=== PATIENT | male | born 1950 | race African-American/Black ===

== ENCOUNTER 2024-03-22 18:24 | Inpatient (IN) | payer OTHER ==
[~2024-03-22] VITALS: Ht 172.7 cm; Wt 84.9 kg
[2024-03-22 19:14] LABS: Basophils # (auto) 0.1 10 ^3/uL (0-0.2); Eosinophils % (auto) 1.1 % (0.0-7.0); Hemoglobin 11.9 g/dL (13.5-17.5); Monocytes # (auto) 1.1 10 ^3/uL (0-1.3); Nucleated Red Blood Cells % 0.1 %
[2024-03-22 19:16] LABS: Basophils % (auto) 0.8 % (0.0-2.0); Eosinophils # (auto) 0.1 10 ^3/uL (0-0.8); Hematocrit 37.1 % (41.0-53.0); Lymphocytes % (auto) 21.6 % (10.0-50.0); Mean Corpuscular Volume 93.7 fL (80.0-100.0); Monocytes % (auto) 8.3 % (0.0-12.0); Neutrophils # (auto) 9.3 10 ^3/uL (1.6-8.6); Neutrophils % (auto) 68.2 % (37.0-80.0); Red Blood Cells 3.96 10^6/uL (4.5-5.90); Red Cell Distribution Width 13.4 % (11.8-14.3); White Blood Cell 13.7 10^3/uL (4.4-10.8)
[2024-03-22 19:29] LABS: Chloride 98 mmol/L (98-107); Potassium 3.4 mmol/L (3.5-5.1); Sodium 133 mmol/L (136-145)
[2024-03-22 19:30] LABS: Anion Gap 14 (5-15); Calcium 9.9 mg/dL (8.7-10.4); Carbon Dioxide 21 mmol/L (20-30)
[2024-03-22 19:35] LABS: BUN/Creatinine Ratio 16.2 (10.0-20.0); Blood Urea Nitrogen 24 mg/dL (9-23); Glucose 252 mg/dL (74-106)
[2024-03-22 19:41] LABS: Lactic Acid w/Reflex 4.9 mmol/L (0.4-2.0)
[2024-03-22] MEDS ORDERED: SODIUM CHLORIDE 0.9% 1,000 ML IV ONE (20:00)
[2024-03-22] MEDS: VANCOMYCIN 1GM/200ML 200 ML IV ONE (20:00)
[2024-03-22] MEDS: SODIUM CHLORIDE 0.9% 1,000 ML IV ONE (23:30)
[2024-03-23] MEDS: SODIUM CHLORIDE 0.9% 1,000 ML IVB ONE (01:00)
[2024-03-23] MEDS: cefTRIAXone 1GM/50ML D5W 50 ML IV ONE (01:10)
[2024-03-23] MEDS ORDERED: VANCOMYCIN PER PHARMACY 0 MG IV SCH (02:30)
[2024-03-23] MEDS: SODIUM CHLORIDE 0.9% 1,000 ML IV SCH (02:30)
[2024-03-23] MEDS ORDERED: MORPHINE SULFATE INJ 2 MG/ml SYRG IV PRN (02:30)
[2024-03-23] MEDS ORDERED: ONDANSETRON HCL 4 MG/2 ML VIAL IV PRN (02:30)
[2024-03-23] MEDS ORDERED: NITROGLYCERIN 0.4 MG SL TAB SL PRN (02:30)
[2024-03-23] MEDS ORDERED: DEXTROSE (50%) 50ML SYRG IV PRN (02:30)
[2024-03-23 03:30] VITALS: PULSE 98; RESP 16; O2SAT 97
[2024-03-23] MEDS: VANCOMYCIN 1GM/200ML 200 ML IV ONE (03:37)
[2024-03-23 04:54] LABS: Basophils # (auto) 0.1 10 ^3/uL (0-0.2); Basophils % (auto) 0.5 % (0.0-2.0); Eosinophils # (auto) 0 10 ^3/uL (0-0.8); Hematocrit 37.1 % (41.0-53.0); Lymphocytes # (auto) 2.2 10 ^3/uL (0.4-5.4); Monocytes # (auto) 1.4 10 ^3/uL (0-1.3); Red Blood Cells 3.91 10^6/uL (4.5-5.90)
[2024-03-23 04:56] LABS: Eosinophils % (auto) 0.2 % (0.0-7.0); Hemoglobin 11.9 g/dL (13.5-17.5); Lymphocytes % (auto) 12.7 % (10.0-50.0); Mean Corpuscular Hemoglobin 30.4 pg (28.0-32.0); Mean Corpuscular Volume 95.1 fL (80.0-100.0); Monocytes % (auto) 7.7 % (0.0-12.0); Neutrophils # (auto) 13.9 10 ^3/uL (1.6-8.6); Neutrophils % (auto) 78.9 % (37.0-80.0); Red Cell Distribution Width 13.5 % (11.8-14.3); White Blood Cell 17.6 10^3/uL (4.4-10.8)
[2024-03-23 05:03] LABS: Chloride 100 mmol/L (98-107); Potassium 3.8 mmol/L (3.5-5.1); Sodium 134 mmol/L (136-145)
[2024-03-23 05:04] LABS: Anion Gap 12 (5-15); Calcium 9.6 mg/dL (8.7-10.4); Carbon Dioxide 22 mmol/L (20-30)
[2024-03-23 05:09] LABS: BUN/Creatinine Ratio 16.3 (10.0-20.0); Blood Urea Nitrogen 23 mg/dL (9-23)
[2024-03-23 05:16] LABS: Glucose 134 mg/dL (74-106)
[2024-03-23 05:23] LABS: Lactic Acid w/Reflex 2.4 mmol/L (0.4-2.0)
[2024-03-23] MEDS ORDERED: PIPERACILLIN-TAZOB 3.375GM 100 ML IV SCH (06:00)
[2024-03-23] MEDS: PIPERACILLIN-TAZOB 3.375GM 100 ML IV SCH (06:21)
[2024-03-23] MEDS: ACCU-CHEK COMFORT CURVE STRIP VI SCH (06:21)
[2024-03-23] MEDS: InsuLIN REG 1unit/0.01ml Soln (100units/ml) SC SCH (06:21)
[2024-03-23] MEDS: SODIUM CHLORIDE 0.9% 1,000 ML IV ONE (06:46)
[2024-03-23 08:46] VITALS: BP 106/68; PULSE 99; RESP 18; TEMP 98.4; O2SAT 100
[2024-03-23 08:50] VITALS: BP 106/68; PULSE 99; RESP 18; TEMP 98.4; O2SAT 100
[2024-03-23] MEDS: PANTOPRAZOLE 40 MG/10 ML VIAL INJ IV SCH (09:49)
[2024-03-23] MEDS: HEPARIN SODIUM (PORCINE) 5000 UNITS/ML 1ML VIAL SC SCH (09:54)
[2024-03-23 17:00] VITALS: BP 114/70; PULSE 89; RESP 16; TEMP 98.3; O2SAT 100
[2024-03-23 18:12] LABS: Urine Bacteria None Seen /hpf (None Seen)
[2024-03-23 18:37] LABS: Urine Blood Negative /uL (Negative); Urine Clarity Clear (Clear); Urine Color Colorless (Yellow); Urine Protein, UAD Negative (Negative); Urine Urobilinogen Normal (Negative); Urine WBC <1 /hpf (0 - 3); Urine pH 5.5 (5.0-9.0)
[2024-03-23 20:00] VITALS: PULSE 93
[2024-03-23] MEDS: ACETAMINOPHEN 325 MG TAB PO PRN (21:49)
[2024-03-23 22:08] VITALS: BP 115/66; PULSE 90; RESP 18; TEMP 99.3; O2SAT 100
[2024-03-24] MEDS ORDERED: VANCOMYCIN 1GM/200ML 200 ML IV SCH
[2024-03-24] MEDS ORDERED: LEVO500T91 PO (05:00)
[2024-03-24] MEDS: VANCOMYCIN 1GM/200ML 200 ML IV SCH (05:30)
[2024-03-24 05:56] VITALS: BP 145/74; PULSE 90; RESP 18; TEMP 98.9; O2SAT 98
[2024-03-24 06:25] LABS: Chloride 103 mmol/L (98-107); Potassium 3.3 mmol/L (3.5-5.1); Sodium 136 mmol/L (136-145)
[2024-03-24 06:26] LABS: Anion Gap 9 (5-15); Basophils # (auto) 0.1 10 ^3/uL (0-0.2); Calcium 9.2 mg/dL (8.7-10.4); Carbon Dioxide 24 mmol/L (20-30); Eosinophils # (auto) 0.1 10 ^3/uL (0-0.8); Eosinophils % (auto) 1.1 % (0.0-7.0); Lymphocytes # (auto) 1.6 10 ^3/uL (0.4-5.4); Neutrophils # (auto) 8.1 10 ^3/uL (1.6-8.6); White Blood Cell 11.2 10^3/uL (4.4-10.8)
[2024-03-24 06:29] LABS: Basophils % (auto) 0.7 % (0.0-2.0); Hematocrit 31.4 % (41.0-53.0); Hemoglobin 10.2 g/dL (13.5-17.5); Lymphocytes % (auto) 14.5 % (10.0-50.0); Mean Corpuscular Hemoglobin 30.3 pg (28.0-32.0); Mean Corpuscular Hgb Conc. 32.5 g/dL (32.0-36.0); Mean Corpuscular Volume 93.2 fL (80.0-100.0); Monocytes # (auto) 1.2 10 ^3/uL (0-1.3); Monocytes % (auto) 10.8 % (0.0-12.0); Neutrophils % (auto) 72.9 % (37.0-80.0); Red Blood Cells 3.37 10^6/uL (4.5-5.90); Red Cell Distribution Width 13.8 % (11.8-14.3)
[2024-03-24 06:31] LABS: BUN/Creatinine Ratio 14.9 (10.0-20.0); Blood Urea Nitrogen 14 mg/dL (9-23); Glucose 119 mg/dL (74-106)
[2024-03-24] MEDS: POTASSIUM CHL 20 Meq TABLET PO ONE (08:16)
[2024-03-24 09:00] VITALS: BP 115/67; PULSE 94; RESP 17; TEMP 99; O2SAT 97
[2024-03-24 10:11] VITALS: BP 115/67; PULSE 94; RESP 17; TEMP 37.2; O2SAT 97
[2024-03-24 12:00] VITALS: BP 143/75; PULSE 102; RESP 16; TEMP 99.5; O2SAT 100
[2024-03-24 16:49] VITALS: BP 132/70; PULSE 104; RESP 18; TEMP 100.5; O2SAT 99
== END 2024-03-24 18:55 | disposition home or self-care (01) | DRG 872 ==
LOC: ER 18:24 → TELE 03-23 02:38 → TELE-WESTW 03-23 08:44
PROVIDERS: ADMIT Internal Medicine; ATTEND Internal Medicine
DX: A41.9 Sepsis, unspecified organism (principal); E87.20 Acidosis, unspecified; E11.22 Type 2 diabetes mellitus with diabetic chronic kidney disease; I12.9 Hypertensive chronic kidney disease with stage 1 through stage 4 chronic kidney disease, or unspecified chronic kidney disease; N18.30 Chronic kidney disease, stage 3 unspecified; E78.00 Pure hypercholesterolemia, unspecified; I95.0 Idiopathic hypotension; Z80.9 Family history of malignant neoplasm, unspecified; Z79.4 Long term (current) use of insulin
CPT/HCPCS: 36415; 71045; 74176; 80048; 81001; 82962; 83605; 84484; 85025; 87040; 87086; 96361; 96365; 96367; 96375; C9113; G0378; J1815; J2543